=== PATIENT | male | born 1945 | race African-American/Black ===

== ENCOUNTER 2023-09-21 18:00 | Inpatient (IN) | payer MEDICARE, OTHER ==
[~2023-09-21] VITALS: Ht 152.4 cm; Wt 79.8 kg
[~2023-09-21 18:00] MED LIST: AMLO5TAB88 PO; ASPI-1406 PO; KEPPSOL PO; LIP40 PO; LISI-186 PO
[2023-09-21] MEDS: SODIUM CHLORIDE 0.9% 500 ML IV ONE (18:49)
[2023-09-21 20:13] LABS: BASOPHILS % 0.3 % (0.0-2.0); DIFFERENTIAL COMMENT 0; EOSINOPHILS % 0.1 % (0.0-5.0); HEMATOCRIT. 48.4 % (42.0-52.0); HEMOGLOBIN. 14.2 g/dL (14.0-18.0); LYMPHOCYTES % 16.2 % (20.0-50.0); MEAN CORPUSCULAR HEMOGLOBIN 25.5 pg (28.0-32.0); MEAN CORPUSCULAR HGB CONC 29.3 g/dL (31.0-37.0); MEAN PLATELET VOLUME 9.2 fl (7.4-10.4); MONOCYTES % 3.2 % (2.0-8.0); NEUTROPHILS % 80.2 % (40.0-76.0); PLATELET 562 x1000/uL (130-400); RED BLOOD CELL COUNT 5.57 mill/uL (4.7-6.1); RED CELL DISTRIBUTION WIDTH 18.1 % (11.6-14.6); WHITE BLOOD COUNT 25.6 x1000/uL (4.5-11.0)
[2023-09-21 20:17] LABS: CHLORIDE 111 mEq/L (98-107); POTASSIUM 4.6 mEq/L (3.5-5.1); SODIUM 145 mEq/L (136-145)
[2023-09-21 20:18] LABS: CALCIUM 9.9 mg/dL (8.7-10.4); CARBON DIOXIDE 17 mEq/L (21-32); PROTHROMBIN TIME 11.2 sec (9.6-11.0)
[2023-09-21 20:23] LABS: CREATININE 1.2 mg/dL (0.6-1.3); GLUCOSE 87 mg/dL (70-105); UREA NITROGEN BLOOD 22 mg/dL (9-23)
[2023-09-21 20:24] LABS: TROPONIN I HIGH SENSITIVITY 11 ng/L (3.0-53)
[2023-09-21 20:29] LABS: LACTIC ACID 10.1 mmol/L (0.4-2.0)
[2023-09-21] MEDS: PIPERACILLIN/TAZO 3.375G/50ML 50 ML IV ONE (21:08)
[2023-09-21] MEDS: SODIUM CHLORIDE 0.9% 1,000 ML IV ONE (21:09)
[2023-09-21] MEDS: VANCOMYCIN 1G PREMIX 200 ML IV ONE (22:37)
[2023-09-22 00:02] VITALS: BP 129/68; PULSE 62; RESP 18; TEMP 98.1
[2023-09-22] MEDS ORDERED: DOCUSATE SODIUM 100MG CAPSULE PO PRN (04:00)
[2023-09-22] MEDS ORDERED: ONDANSETRON HCL 4MG/2ML INJ IV PRN (04:00)
[2023-09-22] MEDS ORDERED: IPRATROPIUM/ALBUTEROL 0.5-3(2.5)MG/3ML NEB HHN PRN (04:00)
[2023-09-22] MEDS ORDERED: GUAIFENESIN 200MG/10ML SUGAR FREE UDC PO PRN (04:00)
[2023-09-22] MEDS ORDERED: MAGNESIUM/ALUMINUM HYDROXIDE/SIMETHICONE 30ML UDC PO PRN (04:00)
[2023-09-22] MEDS ORDERED: ACETAMINOPHEN 325MG TABLET PO PRN ×2 (04:00)
[2023-09-22] MEDS: PIPERACILLIN/TAZO 3.375G/50ML 50 ML IV SCH (06:15)
[2023-09-22] MEDS: SODIUM CHLORIDE 0.9% 1,000 ML IV SCH (06:15)
[2023-09-22 08:00] VITALS: BP 135/69; PULSE 67; RESP 18; TEMP 97.1
[2023-09-22] MEDS: ASPIRIN 81MG EC TABLET PO SCH (09:02)
[2023-09-22] MEDS: LEVETIRACETAM 500MG/5ML CUP PO SCH (09:02)
[2023-09-22] MEDS: ENOXAPARIN 40MG/0.4ML SYR SUBCUT SCH (09:03)
[2023-09-22 12:00] VITALS: BP 163/40; PULSE 88; RESP 18; TEMP 98.1
[2023-09-22 16:00] VITALS: BP 102/42; PULSE 67; RESP 18; TEMP 97.9
[2023-09-22] MEDS: DEXT 5%/0.45% NACL 1000ML 1,000 ML IV SCH (17:49)
[2023-09-22] MEDS: VANCOMYCIN 1GM/200ML PMX (BAXTER) IV SCH (17:59)
[2023-09-22] MEDS ORDERED: VANCOMYCIN 1000MG/250ML IV SCH (18:00)
[2023-09-22] MEDS: DEXTROSE 50% WATER 50ML SYRINGE IV PRN (18:10)
[2023-09-22 18:32] LABS: CALCIUM 10.1 mg/dL (8.7-10.4); CARBON DIOXIDE 20 mEq/L (21-32); CHLORIDE 114 mEq/L (98-107); POTASSIUM 4.8 mEq/L (3.5-5.1); SODIUM 147 mEq/L (136-145)
[2023-09-22 18:37] LABS: CREATININE 1.2 mg/dL (0.6-1.3); GLUCOSE 88 mg/dL (70-105)
[2023-09-22 18:38] LABS: LDL CHOLESTEROL 118 mg/dL (5-100); TRIGLYCERIDE 126 mg/dL (0-150); TROPONIN I HIGH SENSITIVITY 17 ng/L (3.0-53); UREA NITROGEN BLOOD 22 mg/dL (9-23)
[2023-09-22 18:39] LABS: ALANINE AMINOTRANSFERASE 11 IU/L (10-49); ALBUMIN 3.5 g/dL (3.2-4.8); ASPARTATE AMINOTRANSFERASE 20 IU/L (<34); CHOLESTEROL 196 mg/dL (<200); HDL CHOLESTEROL 52 mg/dL (>55)
[2023-09-22 18:40] LABS: BILIRUBIN TOTAL 0.3 mg/dL (0.1-1.0); PHOSPHORUS 4.3 mg/dL (2.5-4.9); PROTEIN TOTAL 6.8 g/dL (6.0-8.3)
[2023-09-22 20:00] VITALS: BP 132/70; PULSE 78; RESP 18; TEMP 97.2
[2023-09-22 20:08] LABS: LACTIC ACID 7.3 mmol/L (0.4-2.0)
[2023-09-22 21:39] LABS: HEMATOCRIT 38.9 % (42.0-52.0); HEMOGLOBIN 12.3 g/dL (14.0-18.0); MEAN CORPUSCULAR HEMOGLOBIN 25.4 pg (28.0-32.0); MEAN CORPUSCULAR HGB CONC 31.7 g/dL (31.0-37.0); PLATELET 305 x1000/uL (130-400); RED BLOOD CELL COUNT 4.86 mill/uL (4.7-6.1); RED CELL DISTRIBUTION WIDTH 16.6 % (11.6-14.6); WHITE BLOOD COUNT 11.5 x1000/uL (4.5-11.0)
[2023-09-22 21:48] LABS: CHLORIDE 111 mEq/L (98-107); POTASSIUM 3.8 mEq/L (3.5-5.1); SODIUM 147 mEq/L (136-145)
[2023-09-22 21:49] LABS: CARBON DIOXIDE 25 mEq/L (21-32)
[2023-09-22 21:54] LABS: CREATININE 1.2 mg/dL (0.6-1.3); GLUCOSE 97 mg/dL (70-105); UREA NITROGEN BLOOD 27 mg/dL (9-23)
[2023-09-22 21:55] LABS: CREATINE KINASE MB FRACTION 1.5 ng/mL (0.5-3.6); TROPONIN I HIGH SENSITIVITY 13 ng/L (3.0-53)
[2023-09-22] MEDS: MAGNESIUM 2 G PREMIX 50 ML IV NR (21:57)
[2023-09-22] MEDS: ATORVASTATIN CALCIUM 40MG TABLET PO SCH (21:57)
[2023-09-23] VITALS: BP 107/68; PULSE 76; RESP 18; TEMP 97.2
[2023-09-23 04:00] VITALS: BP 124/64; PULSE 78; RESP 18; TEMP 97.3
[2023-09-23 07:42] VITALS: BP 127/55; PULSE 66; RESP 18; TEMP 97.2
[2023-09-23 11:42] LABS: CLARITY URINE CLOUDY (CLEAR); COLOR URINE DARK YELLOW (YELLOW); GLUCOSE URINE NEGATIVE (NEGATIVE); KETONES URINE TRACE (NEGATIVE); LEUKOCYTE ESTERASE URINE NEGATIVE (NEGATIVE); NITRITE URINE NEGATIVE (NEGATIVE); OCCULT BLOOD URINE NEGATIVE (NEGATIVE); PH URINE 5.5 (4.5-8.0); PROTEIN URINE 1+ (NEGATIVE); SPECIFIC GRAVITY URINE 1.037 (1.005-1.030)
[2023-09-23 12:00] VITALS: BP 137/59; PULSE 71; RESP 18; TEMP 97.7
[2023-09-23 12:20] LABS: BACTERIA URINE 1+; RBC URINE 0-2 /hpf (0-2); SQUAMOUS EPITHELIAL CELL URINE FEW /lpf (RARE/1+); YEAST URINE NONE SEEN
[2023-09-23 12:34] LABS: *AMPHETAMINES SCREEN URINE NEGATIVE (NEGATIVE); *BARBITURATES SCREEN URINE NEGATIVE (NEGATIVE); *BENZODIAZEPINES SCREEN URINE NEGATIVE (NEGATIVE); *COCAINE SCREEN URINE NEGATIVE (NEGATIVE); METHADONE URINE SCREEN NEGATIVE (NEGATIVE); OPIATES URINE SCREEN NEGATIVE (NEGATIVE)
[2023-09-23 12:35] LABS: CANNABINOID URINE SCREEN NEGATIVE (NEGATIVE); ECSTASY MDMA SCREEN URINE NEGATIVE (NEGATIVE); PHENCYCLIDINE URINE SCREEN NEGATIVE (NEGATIVE)
[2023-09-23 15:51] VITALS: BP 158/58; PULSE 74; RESP 20; TEMP 97.4
[2023-09-23 20:00] VITALS: BP 139/60; PULSE 57; RESP 20; TEMP 97.8
[2023-09-24] VITALS: BP 149/68; PULSE 68; RESP 18; TEMP 96.3
[2023-09-24 04:00] VITALS: BP 148/67; PULSE 58; RESP 20; TEMP 97.5
[2023-09-24 07:17] LABS: CARBON DIOXIDE 23 mEq/L (21-32); CHLORIDE 110 mEq/L (98-107); POTASSIUM 4.3 mEq/L (3.5-5.1); SODIUM 144 mEq/L (136-145)
[2023-09-24 07:18] LABS: BASOPHILS % 0.7 % (0.0-2.0); CALCIUM 10.1 mg/dL (8.7-10.4); EOSINOPHILS % 0.6 % (0.0-5.0); HEMATOCRIT. 41.4 % (42.0-52.0); HEMOGLOBIN. 12.9 g/dL (14.0-18.0); LYMPHOCYTES % 30.5 % (20.0-50.0); MEAN CORPUSCULAR HEMOGLOBIN 25.2 pg (28.0-32.0); MEAN CORPUSCULAR HGB CONC 31.2 g/dL (31.0-37.0); MEAN CORPUSCULAR VOLUME 80.8 fL (80.0-94.0); MEAN PLATELET VOLUME 9.3 fl (7.4-10.4); MONOCYTES % 4.2 % (2.0-8.0); PLATELET 245 x1000/uL (130-400); RED BLOOD CELL COUNT 5.12 mill/uL (4.7-6.1); WHITE BLOOD COUNT 9.2 x1000/uL (4.5-11.0)
[2023-09-24 07:22] LABS: CREATININE 1.1 mg/dL (0.6-1.3); GLUCOSE 95 mg/dL (70-105)
[2023-09-24 07:23] LABS: UREA NITROGEN BLOOD 17 mg/dL (9-23)
[2023-09-24 08:00] VITALS: BP 162/54; PULSE 53; RESP 20; TEMP 97.3
[2023-09-24] MEDS: AMLODIPINE 5MG TABLET PO SCH (10:15)
[2023-09-24] MEDS: LOSARTAN 25 MG TABLET PO SCH (12:00)
[2023-09-24 12:04] VITALS: BP 137/41; PULSE 78; RESP 20; TEMP 97.1
[2023-09-24 16:46] VITALS: BP 152/64; PULSE 68; RESP 20; TEMP 97.9
[2023-09-24 20:00] VITALS: BP 168/68; PULSE 73; RESP 18; TEMP 98.2
[2023-09-24] MEDS: CLONIDINE 0.1MG TABLET PO PRN (20:56)
[2023-09-25] VITALS: BP 118/70; PULSE 95; RESP 18; TEMP 97.6
[2023-09-25 04:00] VITALS: BP 147/69; PULSE 68; RESP 20; TEMP 97.3
[2023-09-25 08:00] VITALS: BP 132/83; PULSE 95; RESP 20; TEMP 97.6
[2023-09-25 12:00] VITALS: BP 152/64; PULSE 59; RESP 18; TEMP 98
[2023-09-25 16:00] VITALS: BP 150/66; PULSE 57; RESP 18; TEMP 98.4
[2023-09-25 20:23] VITALS: BP 175/74; PULSE 99; RESP 20; TEMP 98.5
[2023-09-26] VITALS (7 sets, daily range): BP systolic 115–169; BP diastolic 70–86; PULSE 60–116; RESP 16–20; TEMP 97.1–99.1; O2SAT 98
[2023-09-26] MEDS ORDERED: LIP40 PO (15:08)
[2023-09-26] MEDS ORDERED: AMLO5TAB88 PO (15:08)
[2023-09-26] MEDS ORDERED: ASPI-1406 PO (15:08)
[2023-09-26] MEDS ORDERED: KEPPSOL PO (15:08)
[2023-09-26] MEDS ORDERED: LOSA25TA26 PO (15:08)
[2023-09-26] MEDS ORDERED: MEGE400O6 PO (15:35)
[2023-09-26] MEDS ORDERED: MULT-1146 PO (15:37)
[2023-09-26] MEDS: MEGESTROL ACETATE 400 MG/10 ML UDC PO SCH (16:00)
== END 2023-09-26 21:25 | disposition home health service (06) | DRG 871 ==
LOC: ER 18:00 → 7WST 21:02 → EDBEDREQ 22:04 → EDBEDREQTM 22:04
PROVIDERS: ADMIT Internal Medicine; ATTEND Internal Medicine
PROC: 5A09357 Assistance with Respiratory Ventilation, Less than 24 Consecutive Hours, Continuous Positive Airway Pressure (ICD-10-PCS; principal; 2023-09-22)
DX: A41.9 Sepsis, unspecified organism (principal); G93.41 Metabolic encephalopathy; I62.02 Nontraumatic subacute subdural hemorrhage; N39.0 Urinary tract infection, site not specified; E86.0 Dehydration; I48.91 Unspecified atrial fibrillation; F03.90 Unspecified dementia, unspecified severity, without behavioral disturbance, psychotic disturbance, mood disturbance, and anxiety; I10 Essential (primary) hypertension; E78.00 Pure hypercholesterolemia, unspecified; R56.9 Unspecified convulsions; E83.42 Hypomagnesemia; E16.2 Hypoglycemia, unspecified; Z79.82 Long term (current) use of aspirin; Z79.899 Other long term (current) drug therapy
CPT/HCPCS: 36415; 70551; 71045; 80048; 80053; 80061; 80202; 80305; 81003; 82553; 82962; 83036; 83605; 83735; 84100; 84145; 84484; 85025; 85027; 93005; 93306; 93970; 97162; 99285; J1650; J2543; J3370; J3475; J7030; J7040